=== PATIENT | female | born 1990 | race Caucasian/White ===

== ENCOUNTER 2024-05-09 10:43 | Observation (INO) | payer SELFPAY ==
[~2024-05-09] VITALS: Ht 160 cm; Wt 58.0 kg
[2024-05-09] MEDS ORDERED: PREN-537 PO (11:27)
[2024-05-09] MEDS: TERBUTALINE 1 MG/ML VIAL SUBQ SCH (11:55)
[2024-05-09] MEDS: LACTATED RINGERS 1,000 ML IV SCH (12:10)
== END 2024-05-09 13:35 | disposition home or self-care (01) ==
LOC: MLD 10:43
PROVIDERS: ADMIT Obstetrics & Gynecology; ATTEND Obstetrics & Gynecology
DX: O62.9 Abnormality of forces of labor, unspecified (principal); Z3A.28 28 weeks gestation of pregnancy
CPT/HCPCS: 96360; 96372; G0378; G0379; J3105; J7120